=== PATIENT | male | born 1955 | race Two or more races ===

== ENCOUNTER 2020-07-07 14:17 | Emergency (ER) | payer OTHER ==
[~2020-07-07] VITALS: Ht 182.9 cm; Wt 99.8 kg
[2020-07-07] MEDS ORDERED: LANSOPRAZOLE30 MG (14:45)
== END 2020-07-07 19:07 | disposition home or self-care (01) ==
LOC: ER 14:17
DX: J20.9 Acute bronchitis, unspecified (principal); Z03.818 Encounter for observation for suspected exposure to other biological agents ruled out